=== PATIENT | female | born 1940 | race Two or more races ===

== ENCOUNTER 2024-02-15 09:35 | Inpatient (IN) | payer OTHER ==
[2024-02-15] VITALS (8 sets, daily range): BP systolic 143–144; BP diastolic 56–64; PULSE 60–78; RESP 16–18; TEMP 98; O2SAT 96–100
[~2024-02-15] VITALS: Ht 157.5 cm; Wt 73.0 kg
[2024-02-15 10:26] LABS: Basophils # (auto) 0 10 ^3/uL (0-0.2); Basophils % (auto) 0.8 % (0.0-2.0); Eosinophils # (auto) 0 10 ^3/uL (0-0.8); Eosinophils % (auto) 0.7 % (0.0-7.0); Hematocrit 44.2 % (36.0-46.0); Hemoglobin 14.9 g/dL (12.2-16.2); Lymphocytes # (auto) 1.5 10 ^3/uL (0.4-5.4); Lymphocytes % (auto) 25.1 % (10.0-50.0); Mean Corpuscular Hgb Conc. 33.7 g/dL (32.0-36.0); Monocytes # (auto) 0.5 10 ^3/uL (0-1.3); Monocytes % (auto) 9.3 % (0.0-12.0); Neutrophils # (auto) 3.8 10 ^3/uL (1.6-8.6); Neutrophils % (auto) 64.1 % (37.0-80.0); Nucleated Red Blood Cells % 0.1 %; Red Blood Cells 4.97 10^6/uL (4.0-5.20); Red Cell Distribution Width 14.8 % (11.8-14.3); White Blood Cell 5.9 10^3/uL (4.4-10.8)
[2024-02-15 10:41] LABS: Carbon Dioxide 28 mmol/L (20-30)
[2024-02-15 10:42] LABS: Calcium 10.2 mg/dL (8.7-10.4)
[2024-02-15 10:47] LABS: BUN/Creatinine Ratio 14.3 (10.0-20.0); Blood Urea Nitrogen 16 mg/dL (9-23); Glucose 102 mg/dL (74-106)
[2024-02-15 10:59] LABS: Anion Gap 7 (5-15); Chloride 102 mmol/L (98-107); Potassium 4.1 mmol/L (3.5-5.1); Sodium 137 mmol/L (136-145)
[2024-02-15] MEDS ORDERED: NITROGLYCERIN 0.4 MG SL TAB SL PRN ×2 (13:00→16:00)
[2024-02-15] MEDS ORDERED: SODIUM CHLORIDE 0.9% 1,000 ML IV SCH (13:00)
[2024-02-15] MEDS ORDERED: ALBUTEROL SULF 2.5 MG/0.5ML(0.5%) NEB SOLN NEB PRN ×2 (13:00→16:15)
[2024-02-15] MEDS ORDERED: ACETAMINOPHEN 325 MG TAB PO PRN (13:00)
[2024-02-15] MEDS ORDERED: MORPHINE SULFATE INJ 2 MG/ml SYRG IV PRN ×2 (13:00→16:00)
[2024-02-15] MEDS ORDERED: TRAZ-227 PO (13:03)
[2024-02-15] MEDS ORDERED: ALPR0.5T7 PO (13:03)
[2024-02-15] MEDS ORDERED: ESCI1TAB36 PO (13:03)
[2024-02-15] MEDS ORDERED: DAPA10TA3 PO (13:03)
[2024-02-15] MEDS ORDERED: LETR2.5T6 PO (13:03)
[2024-02-15] MEDS ORDERED: DAPA1TAB4 PO (13:03)
[2024-02-15] MEDS ORDERED: PANT40T PO (13:03)
[2024-02-15] MEDS ORDERED: LOSA-535 PO (13:03)
[2024-02-15] MEDS ORDERED: METH-1181 PO (13:03)
[2024-02-15] MEDS ORDERED: LEVO75TA6 PO (13:03)
[2024-02-15] MEDS ORDERED: IBUP1TAB5 PO (13:03)
[2024-02-15] MEDS ORDERED: ALBU108A5 INH (13:03)
[2024-02-15] MEDS ORDERED: ALBUAER3 PO (13:03)
[2024-02-15] MEDS ORDERED: ATOR10TA52 PO (13:03)
[2024-02-15] MEDS ORDERED: AZIT-43 PO (13:03)
[2024-02-15] MEDS ORDERED: LORA-483 PO (13:03)
[2024-02-15] MEDS ORDERED: hydrALAZINE HCL 20 MG/ML VL IV PRN (13:15)
[2024-02-15] MEDS ORDERED: traZODone HCL 50 MG TAB PO PRN (13:15)
[2024-02-15 13:52] LABS: Triglycerides 123 mg/dL (< 150)
[2024-02-15 13:53] LABS: LDL Cholesterol 50 mg/dL (< 100)
[2024-02-15 13:54] LABS: Cholesterol 137 mg/dL (< 200); HDL Cholesterol 66 mg/dL (40-59)
[2024-02-15] MEDS ORDERED: IPRATROPIUM BROM 0.5 MG/2.5ML INH SOL NEB SCH (14:00)
[2024-02-15] MEDS ORDERED: ALBUTEROL SULF 2.5 MG/0.5ML(0.5%) NEB SOLN NEB SCH (14:00)
[2024-02-15 14:30] LABS: INR 1.05 (0.9-1.15); Partial Thromboplastin Time 25.2 SEC (24.5-34.5); Prothrombin Time 11.1 sec (9.3-11.8)
[2024-02-15] MEDS ORDERED: DEXTROSE (50%) 50ML SYRG IV PRN (16:00)
[2024-02-15] MEDS: ACCU-CHEK COMFORT CURVE STRIP VI SCH (18:13)
[2024-02-15] MEDS: InsuLIN REG 1unit/0.01ml Soln (100units/ml) SC SCH (18:14)
[2024-02-15] MEDS: SODIUM CHLORIDE 0.9% 1,000 ML IV SCH (18:26)
[2024-02-15] MEDS: IPRATROPIUM BROM 0.5 MG/2.5ML INH SOL NEB SCH (18:36)
[2024-02-15] MEDS: ALBUTEROL SULF 2.5 MG/0.5ML(0.5%) NEB SOLN NEB SCH (18:36)
[2024-02-15 21:31] LABS: Body Fluid Polymorphonuclear 2 % (0-25); Body Fluid Red Blood Cells 65 CUMM (0-2000); Body Fluid White Blood Cells 293 CUMM (0-200)
[2024-02-15] MEDS: ATORVASTATIN 20 MG TAB PO SCH (22:30)
[2024-02-16] VITALS (18 sets, daily range): BP systolic 104–143; BP diastolic 41–56; PULSE 63–92; RESP 16–20; TEMP 97.6–98.3; O2SAT 91–100
[2024-02-16] MEDS: HYDROcodone-ACET 5/325MG TAB PO PRN (00:03)
[2024-02-16] MEDS: LEVOTHYROXINE SODIUM 25 MCG TAB PO SCH (06:02)
[2024-02-16] MEDS ORDERED: TRIA75TA55 PO (06:02)
[2024-02-16 07:08] LABS: Albumin 3.9 g/dL (3.2-4.8); Alkaline Phosphatase 51 U/L (46-116); Anion Gap 7 (5-15); Aspartate Aminotransferase 25 U/L (13-40); BUN/Creatinine Ratio 10.1 (10.0-20.0); Bilirubin, Total 0.6 mg/dL (0.2-1.0); Blood Urea Nitrogen 11 mg/dL (9-23); Calcium 9.4 mg/dL (8.7-10.4); Carbon Dioxide 27 mmol/L (20-30); Chloride 102 mmol/L (98-107); Glucose 114 mg/dL (74-106); Potassium 3.6 mmol/L (3.5-5.1); Sodium 136 mmol/L (136-145); Total Protein 6.1 g/dL (5.7-8.2)
[2024-02-16 07:10] LABS: Alanine Aminotransferase < 9 U/L (7-40)
[2024-02-16 09:23] LABS: Basophils # (auto) 0 10 ^3/uL (0-0.2); Basophils % (auto) 0.8 % (0.0-2.0); Eosinophils # (auto) 0 10 ^3/uL (0-0.8); Eosinophils % (auto) 0.8 % (0.0-7.0); Hematocrit 40.3 % (36.0-46.0); Hemoglobin 13.6 g/dL (12.2-16.2); Lymphocytes # (auto) 1.1 10 ^3/uL (0.4-5.4); Lymphocytes % (auto) 24.7 % (10.0-50.0); Mean Corpuscular Hemoglobin 29.7 pg (28.0-32.0); Mean Corpuscular Hgb Conc. 33.6 g/dL (32.0-36.0); Mean Corpuscular Volume 88.4 fL (80.0-100.0); Monocytes # (auto) 0.4 10 ^3/uL (0-1.3); Monocytes % (auto) 9.2 % (0.0-12.0); Neutrophils # (auto) 2.8 10 ^3/uL (1.6-8.6); Neutrophils % (auto) 64.5 % (37.0-80.0); Nucleated Red Blood Cells % 0.1 %; Red Blood Cells 4.56 10^6/uL (4.0-5.20); Red Cell Distribution Width 15.1 % (11.8-14.3); White Blood Cell 4.4 10^3/uL (4.4-10.8)
[2024-02-16] MEDS: CITALOPRAM HYDROBR 20 MG TAB PO SCH (09:39)
[2024-02-16] MEDS: LOSARTAN POTASSIUM 50 MG TAB PO SCH (09:40)
[2024-02-16] MEDS: ENOXAPARIN SOD 40 MG/0.4 ML SYRINGE SC SCH (09:41)
[2024-02-16] MEDS: Letrozole 2.5 MG TAB PO SCH (10:00)
[2024-02-16] MEDS ORDERED: METHOCARBAMOL 500 MG TAB PO SCH (10:00)
[2024-02-16] MEDS ORDERED: PANTOPRAZOLE 40 MG TAB PO SCH (10:00)
[2024-02-17] VITALS (17 sets, daily range): BP systolic 106–132; BP diastolic 38–77; PULSE 65–93; RESP 16–20; TEMP 97.9–99.4; O2SAT 85–100
[2024-02-17 07:30] LABS: Albumin 3.5 g/dL (3.2-4.8); Alkaline Phosphatase 53 U/L (46-116); Anion Gap 9 (5-15); Aspartate Aminotransferase 15 U/L (13-40); BUN/Creatinine Ratio 13.6 (10.0-20.0); Bilirubin, Total 0.5 mg/dL (0.2-1.0); Blood Urea Nitrogen 15 mg/dL (9-23); Carbon Dioxide 25 mmol/L (20-30); Chloride 105 mmol/L (98-107); Glucose 122 mg/dL (74-106); Potassium 3.4 mmol/L (3.5-5.1); Sodium 139 mmol/L (136-145); Total Protein 5.2 g/dL (5.7-8.2)
[2024-02-17 07:34] LABS: Alanine Aminotransferase < 9 U/L (7-40)
[2024-02-17] MEDS ORDERED: DAPAGLIFLOZIN PROPANEDIOL 10 MG PO SCH (10:00)
[2024-02-17] MEDS: EMPAGLIFLOZIN 10 MG TAB PO SCH (11:00)
[2024-02-17] MEDS: POTASSIUM EFFERVESENT TAB 25 MEQ PO ONE (11:21)
[2024-02-17 14:06] LABS: Protein, Body Fluid 4.3 g/dL (.)
[2024-02-18] VITALS (22 sets, daily range): BP systolic 117–148; BP diastolic 51–77; PULSE 53–89; RESP 16–20; TEMP 97.9–98.8; O2SAT 89–100
[2024-02-18 07:08] LABS: Anion Gap 7 (5-15); Calcium 9.4 mg/dL (8.7-10.4); Carbon Dioxide 29 mmol/L (20-30); Chloride 103 mmol/L (98-107); Potassium 3.4 mmol/L (3.5-5.1); Sodium 139 mmol/L (136-145)
[2024-02-18 07:13] LABS: Glucose 118 mg/dL (74-106)
[2024-02-18 07:14] LABS: BUN/Creatinine Ratio 11.3 (10.0-20.0); Blood Urea Nitrogen 11 mg/dL (9-23)
[2024-02-18] MEDS: POTASSIUM EFFERVESENT TAB 25 MEQ PO ONE (09:42)
[2024-02-18] MEDS: MIDAZOLAM HCL 2MG/2ML 2ml VIAL (1mg/ml) IV ONE (12:41)
[2024-02-18] MEDS: fentaNYL CITRATE 100 MCG/2 ML VL IV ONE (12:41)
[2024-02-18] MEDS ORDERED: MORPHINE SULFATE INJ 2 MG/ml SYRG IV PRN (16:15)
[2024-02-18] MEDS: ACETAMINOPHEN 325 MG TAB PO PRN (18:56)
[2024-02-18] MEDS: traZODone HCL 50 MG TAB PO SCH (21:06)
[2024-02-19] VITALS (19 sets, daily range): BP systolic 106–144; BP diastolic 52–92; PULSE 70–94; RESP 16–20; TEMP 98.1–99.7; O2SAT 92–100
[2024-02-19 06:13] LABS: Basophils # (auto) 0 10 ^3/uL (0-0.2); Basophils % (auto) 0.6 % (0.0-2.0); Eosinophils # (auto) 0 10 ^3/uL (0-0.8); Eosinophils % (auto) 0.9 % (0.0-7.0); Hematocrit 38.7 % (36.0-46.0); Lymphocytes # (auto) 1.2 10 ^3/uL (0.4-5.4); Lymphocytes % (auto) 25.1 % (10.0-50.0); Mean Corpuscular Hemoglobin 29.8 pg (28.0-32.0); Mean Corpuscular Hgb Conc. 33.7 g/dL (32.0-36.0); Mean Corpuscular Volume 88.5 fL (80.0-100.0); Monocytes # (auto) 0.6 10 ^3/uL (0-1.3); Monocytes % (auto) 12.6 % (0.0-12.0); Neutrophils # (auto) 2.8 10 ^3/uL (1.6-8.6); Neutrophils % (auto) 60.8 % (37.0-80.0); Nucleated Red Blood Cells % 0.1 %; Red Blood Cells 4.37 10^6/uL (4.0-5.20); Red Cell Distribution Width 15.3 % (11.8-14.3); White Blood Cell 4.7 10^3/uL (4.4-10.8)
[2024-02-19 06:29] LABS: Albumin 3.6 g/dL (3.2-4.8); Alkaline Phosphatase 49 U/L (46-116); Anion Gap 6 (5-15); Aspartate Aminotransferase 18 U/L (13-40); BUN/Creatinine Ratio 10.8 (10.0-20.0); Bilirubin, Total 0.8 mg/dL (0.2-1.0); Blood Urea Nitrogen 11 mg/dL (9-23); Calcium 9.5 mg/dL (8.7-10.4); Carbon Dioxide 29 mmol/L (20-30); Chloride 104 mmol/L (98-107); Glucose 119 mg/dL (74-106); Potassium 4.1 mmol/L (3.5-5.1); Sodium 139 mmol/L (136-145); Total Protein 5.7 g/dL (5.7-8.2)
[2024-02-19 06:30] LABS: Alanine Aminotransferase < 9 U/L (7-40)
[2024-02-20] VITALS (9 sets, daily range): BP systolic 116–155; BP diastolic 49–68; PULSE 70–88; RESP 17–19; TEMP 98.7–99.7; O2SAT 91–97
[2024-02-20] MEDS: THROAT LOZENGES(CEPASTAT) MT PRN (21:15)
[2024-02-21] VITALS (10 sets, daily range): BP systolic 112–145; BP diastolic 57–79; PULSE 70–88; RESP 16–20; TEMP 97.8–100; O2SAT 91–97
[2024-02-21 05:52] LABS: Basophils # (auto) 0 10 ^3/uL (0-0.2); Eosinophils # (auto) 0.1 10 ^3/uL (0-0.8); Eosinophils % (auto) 1.7 % (0.0-7.0); Hematocrit 41.7 % (36.0-46.0); Hemoglobin 13.9 g/dL (12.2-16.2); Lymphocytes # (auto) 0.9 10 ^3/uL (0.4-5.4); Mean Corpuscular Hemoglobin 29.7 pg (28.0-32.0); Mean Corpuscular Hgb Conc. 33.3 g/dL (32.0-36.0); Mean Corpuscular Volume 89.1 fL (80.0-100.0); Monocytes # (auto) 0.5 10 ^3/uL (0-1.3); Monocytes % (auto) 10.5 % (0.0-12.0); Neutrophils # (auto) 2.9 10 ^3/uL (1.6-8.6); Neutrophils % (auto) 65.8 % (37.0-80.0); Red Blood Cells 4.68 10^6/uL (4.0-5.20); Red Cell Distribution Width 14.5 % (11.8-14.3); White Blood Cell 4.4 10^3/uL (4.4-10.8)
[2024-02-21 06:06] LABS: Chloride 102 mmol/L (98-107); Potassium 3.8 mmol/L (3.5-5.1); Sodium 135 mmol/L (136-145)
[2024-02-21 06:07] LABS: Anion Gap 7 (5-15); Carbon Dioxide 26 mmol/L (20-30)
[2024-02-21 06:12] LABS: BUN/Creatinine Ratio 10.6 (10.0-20.0); Blood Urea Nitrogen 9 mg/dL (9-23); Glucose 119 mg/dL (74-106)
[2024-02-22 05:00] VITALS: BP 128/58; PULSE 79; RESP 20; TEMP 98.6; O2SAT 92
[2024-02-22 06:51] VITALS: O2SAT 95
[2024-02-22 08:59] VITALS: BP 127/60; PULSE 71; RESP 16; TEMP 98.3; O2SAT 94
[2024-02-22 13:25] VITALS: BP 129/81; PULSE 69; RESP 17; TEMP 98.1; O2SAT 94
[2024-02-22 16:54] VITALS: BP 114/52; PULSE 75; RESP 17; TEMP 98.7; O2SAT 100
[2024-02-22 17:16] VITALS: BP 114/52; PULSE 75; RESP 17; TEMP 98.7; O2SAT 100
== END 2024-02-22 16:00 | disposition home or self-care (01) | DRG 189 ==
LOC: ER 09:35 → TELE 13:01 → TELE-CENTR 23:01 → TELE-WESTW 02-18 06:26 → WEST WING 02-18 07:11
PROVIDERS: ADMIT Nurse Practitioner Family; ATTEND Nurse Practitioner Acute Care
PROC: 0W993ZZ Drainage of Right Pleural Cavity, Percutaneous Approach (ICD-10-PCS; principal; 2024-02-15)
PROC: 0W993ZZ Drainage of Right Pleural Cavity, Percutaneous Approach (ICD-10-PCS; 2024-02-17)
PROC: 0W9930Z Drainage of Right Pleural Cavity with Drainage Device, Percutaneous Approach (ICD-10-PCS; 2024-02-18)
DX: J96.01 Acute respiratory failure with hypoxia (principal); J93.9 Pneumothorax, unspecified; J98.11 Atelectasis; J91.8 Pleural effusion in other conditions classified elsewhere; E11.9 Type 2 diabetes mellitus without complications; I10 Essential (primary) hypertension; E66.01 Morbid (severe) obesity due to excess calories; J47.9 Bronchiectasis, uncomplicated; Z85.3 Personal history of malignant neoplasm of breast; Z87.891 Personal history of nicotine dependence; Z90.11 Acquired absence of right breast and nipple; Z86.711 Personal history of pulmonary embolism; Z68.29 Body mass index [BMI] 29.0-29.9, adult; Z79.899 Other long term (current) drug therapy; G89.29 Other chronic pain
CPT/HCPCS: 10005; 36415; 71045; 71250; 76604; 76942; 77012; 80048; 80053; 80061; 82962; 83036; 83615; 83735; 83880; 83986; 84443; 84484; 85025; 85379; 85610; 85730; 87205; 89051; 93005; 93306; 94640; 96360; 99291; A4223; C1729; G0378; J1815; J2250

== ENCOUNTER 2024-09-15 10:35 | Emergency (ER) | payer OTHER, MEDICAID ==
[~2024-09-15] VITALS: Ht 160 cm; Wt 73.7 kg
[~2024-09-15 10:35] MED LIST: ALBU108A5 INH; ALBUAER3 PO; ALPR0.5T7 PO; ATOR10TA52 PO; AZIT-43 PO; DAPA10TA3 PO; DAPA1TAB4 PO; ESCI1TAB36 PO; IBUP1TAB5 PO; LETR2.5T6 PO; LEVO75TA6 PO; LORA-483 PO; LOSA-535 PO; METH-1181 PO; PANT40T PO; TRAZ-227 PO; TRIA75TA55 PO
[2024-09-15] MEDS: MORPHINE SULFATE 4 MG/ML SYR/VIAL IV ONE (11:00)
[2024-09-15] MEDS: ONDANSETRON HCL 4 MG/2 ML VIAL IV ONE (11:00)
--- NOTE | 2024-09-15 11:00 | ED.PDOC ---
GI ASSESSMENT HPI Comments 84-year-old female who comes in with chief complaint of left upper quadrant pain since about 2:00 a.m. in the morning. The patient states that pain increases with deep respiration. The patient was currently on chemo as well as radiation therapy at [facility] for a recurring breast cancer with metastasis. The patient states that the pain is a 10/10. She denies any nausea, vomiting, fever or chills. The patient also denies any dysuria. The pain increases on movement and palpation. Chief Complaint: Abdominal Pain Time Seen by MD: 10:42 Primary Care Provider: JERRI Reviewed Notes: Nurses Notes, Medications, Allergies (Allergies to codeine) Allergies: Coded Allergies: Codeine (Verified Allergy, Mild, 02/15/24) Home Meds Reported Medications Triamterene & Hydrochlorothiaz (Maxzide) 1 Tab Tab, 1 TAB PO DAILY, #30 TAB 5 Refills 02/16/24 Dapagliflozin Propanediol (Dapagliflozin Propanediol) 10 Mg Tab, 1 TAB PO DAILY 02/15/24 Trazodone Hcl (Trazodone Hcl) 50 Mg Tab, 1 TAB PO 02/15/24 Levothyroxine Sodium (Levothyroxine Sodium) 75 Mcg Tab, 1 TAB PO QAM 02/15/24 Methocarbamol (Methocarbamol) 500 Mg Tab, TAB PO 02/15/24 Ibuprofen Micronized (Ibuprofen) 600 Mg Tab, 1 TAB PO Q6HPRN PRN 02/15/24 Azithromycin (Azithromycin) 250 Mg Tab, 1 TAB PO UD 02/15/24 Atorvastatin Calcium (ATORVASTATIN CALCIUM) 10 Mg Tab, 1 TAB PO DAILY 02/15/24 Albuterol Sulfate (VENTOLIN MDI) 90 Mcg Ih, 2 PUFF PO Q6HPRN PRN 02/15/24 Losartan Potassium (Losartan Potassium) 100 Mg Tab, 1 TAB PO DAILY 02/15/24 Loratadine (CLARITIN TABLET) 10 Mg Tb, 1 TAB PO DAILYPRN PRN 02/15/24 Alprazolam (Alprazolam) 0.5 Mg Tab, TAB PO 02/15/24 Dapagliflozin Propanediol (Farxiga) 10 Mg Tab, 1 TAB PO DAILY 02/15/24 Escitalopram Oxalate (ESCITALOPRAM OXALATE) 10 Mg Tab, 1 TAB PO DAILY 02/15/24 Pantoprazole Sodium Sesquihydr (Pantoprazole Sodium) 40 Mg Tab, 1 TAB PO DAILY 02/15/24 Letrozole (LETROZOLE) 2.5 Mg Tab, 1 TAB PO DAILY 02/15/24 Albuterol Sulfate (Albuterol Sulfate Hfa) 108 Mcg/Act Aer, INH 02/15/24 Information Source: Patient Mode of Arrival: Ambulatory Timing: Hours (Symptoms started at approximately 2:00 a.m.) Duration: Since onset Prehospital treatment: None Quality: Cramping, Sharp Vomitus: None Stool: Other (History of breast cancer with metastasis) Severity: Moderate Recent: None Recent Hx of: None Pain Location: LUQ Modifying Factors: Exertion, Movement Associated sign and symptoms: Abdominal Pain Past Medical History PAST MEDICAL HISTORY: Cancer (Previous history of breast cancer with metastasis), CKF, DM, High Lipids, HTN, Thyroid Surgical History: Appendectomy, Cholecystectomy, Hysterectomy Surgical History (Other): Cataract surgery, right mastectomy COMMUNICATION INSTRUCTOR History: No Pertinent COMMUNICATION INSTRUCTOR History Family History Family History: Unknown Social History Smoker: Non-Smoker Alcohol: Denies ETOH Use Drugs: Denies Drug Use Lives In: Home Constitutional: denies: chills, diaphoresis, fatigue, fever, malaise, sweats, weakness, others EENTM: denies: blurred vision, double vision, ear bleeding, ear discharge, ear drainage, ear pain, ear ringing, eye pain, eye redness, hearing loss, mouth pain, mouth swelling, nasal discharge, nose bleeding, nose congestion, nose pain, photophobia, tearing, throat pain, throat swelling, voice changes, others Respiratory: denies: cough, hemoptysis, orthopnea, SOB at rest, shortness of breath, SOB with excertion, stridor, wheezing, others Cardiovascular: denies: chest pain, dizzy spells, diaphoresis, Dyspnea on exertion, edema, irregular heart beat, left arm pain, lightheadedness, palpitations, PND, syncope, others Gastrointestinal: reports: abdominal pain; denies: abdomen distended, blood streaked bowels, constipated, diarrhea, dysphagia, difficulty swallowing, hematemesis, melena, nausea, poor appetite, poor fluid intake, rectal bleeding, rectal pain, vomiting, others Genitourinary: denies: abnormal vagina bleeding, burning, dyspareunia, dysuria, flank pain, frequency, hematuria, incontinence, pain, , vagina discharge, urgency, others Neurological: denies: dizziness, fainting, headache, left sided numbness, left sided weakness, numbness, paresthesia, pre-existing deficit, right sided numbness, right sided weakness, seizure, speech problems, tingling, tremors, weakness, others Musculoskeletal: denies: back pain, gout, joint pain, joint swelling, muscle pain, muscle stiffness, neck pain, others Integumetry: denies: bruises, change in color, change in hair/nails, dryness, laceration, lesions, lumps, rash, wounds, others Allergic/Immunocompromised: denies: Difficulty Healing, Frequent Infections, Hives, Itching, others Hematologic/Lymphatic: denies: anemia, blood clots, easy bleeding, easy bruising, swollen glands, others Endocrine: denies: excessive hunger, excessive sweating, excessive thirst, excessive urination, flushing, intolerance to cold, intolerance to heat, unexplained weight gain, unexplained weight loss, others Psychiatric: denies: anxiety, bipolar disorder, depression, hopeless, panic disorder, schizophrenia, sleepless, suicidal, others Physical Exam General Appearance: Moderate Distress HEENT: Pale Conjuntivae (L), Pale Conjuntivae (R), Pharynx Normal, TMs Normal Neck: Full Range of Motion, Non-Tender, Normal, Normal Inspection Respiratory: Chest Non-Tender, Lungs Clear, No Accessory Muscle Use, No Respira tory Distress, Normal Breath Sounds Cardiovascular: No Edema, No JVD, No Murmur, No Gallop, Normal Peripheral Pulses, Regular Rate/Rhythm Breast Exam: Deferred Gastrointestinal: No Organomegaly, No Pulsatile Mass, Normal Bowel Sounds, Soft, Tenderness Genitalia: Deferred Pelvic: Deferred Rectal: Deferred Extremities: No calf tenderness, Normal capillary refill, Normal inspection, Normal range of motion, Non-tender, No pedal edema Musculoskeletal : Apperance: Normal Neurologic: Alert, draw frame tender II-XII nml as Tested, No Motor Deficits, Normal Affect, Normal Mood, No Sensory Deficits Cerebellar Function: Normal Reflexes: Normal Skin: Dry, Normal Color, Warm Lymphatic: No Adenopathy Was a procedure done? Was a procedure done?: No GI differential Dx Differential Diagnosis: Gastritis/PUD, Gastroenteritis, GI hemorrhage, Ischemic Bowel, Pancreatitis, UTI, Electrolyte Imbalance X-Ray, Labs, Meds, VS Vital Signs Date Time Temp Pulse Resp B/P (MAP) Pulse Ox O2 Delivery O2 Flow Rate FiO2 09/15/24 13:21 74 18 94 Room Air 09/15/24 13:21 74 18 134/62 (86) 94 09/15/24 12:16 80 17 151/59 09/15/24 11:00 92 17 151/58 09/15/24 10:52 75 09/15/24 10:49 99.2 83 16 153/64 (93) 97 Lab Test 09/15/24 11:23 09/15/24 10:56 Range/Units White Blood Count 4.8 4.4-10.8 10^3/uL Red Blood Count 3.37 L 4.0-5.20 10^6/uL Hemoglobin 11.4 L 12.2-16.2 g/dL Hematocrit 33.5 L 36.0-46.0 % Mean Corpuscular Volume 99.3 80.0-100.0 fL Mean Corpuscular Hemoglobin 33.8 H 28.0-32.0 pg Mean Corpuscular Hemoglobin Concent 34.0 32.0-36.0 g/dL Red Cell Distribution Width 14.1 11.8-14.3 % Platelet Count 251 140-450 10^3/uL Mean Platelet Volume 7.6 6.9-10.8 fL Neutrophils (%) (Auto) 56.7 37.0-80.0 % Lymphocytes (%) (Auto) 30.3 10.0-50.0 % Monocytes (%) (Auto) 8.6 0.0-12.0 % Eosinophils (%) (Auto) 2.7 0.0-7.0 % Basophils (%) (Auto) 1.7 0.0-2.0 % Neutrophils # (Auto) 2.7 1.6-8.6 10 ^3/uL Lymphocytes # (Auto) 1.5 0.4-5.4 10 ^3/uL Monocytes # (Auto) 0.4 0-1.3 10 ^3/uL Eosinophils # (Auto) 0.1 0-0.8 10 ^3/uL Basophils # (Auto) 0.1 0-0.2 10 ^3/uL Nucleated Red Blood Cells 0.1 % Sodium Level 144 136-145 mmol/L Potassium Level 4.0 3.5-5.1 mmol/L Chloride Level 107 98-107 mmol/L Carbon Dioxide Level 30 20-31 mmol/L Anion Gap 7 5-15 Blood Urea Nitrogen 15 9-23 mg/dL Creatinine 1.23 H 0.550-1.02 mg/dL Glomerular Filtration Rate Calc 44 >90 mL/min BUN/Creatinine Ratio 12.2 10.0-20.0 Serum Glucose 132 H 74-106 mg/dL Calcium Level 10.4 8.7-10.4 mg/dL Total Bilirubin 0.5 0.2-1.0 mg/dL Aspartate Amino Transferase (AST) 19 13-40 U/L Alanine Aminotransferase (ALT) 10 7-40 U/L Alkaline Phosphatase 62 46-116 U/L Total Protein 7.1 5.7-8.2 g/dL Albumin 4.3 3.2-4.8 g/dL Lipase 36 12-53 U/L Urine Color Light-yellow Yellow Urine Clarity Clear Clear Urine pH 6.0 5.0-9.0 Urine Specific Register 1.008 1.001-1.035 Urine Protein Negative Negative Urine Ketones Negative Negative Urine Blood Negative Negative /uL Urine Nitrite Negative Negative Urine Bilirubin Negative Negative Urine Urobilinogen Normal Negative mg/dL Urine Leukocyte Esterase Negative Negative /uL Urine RBC <1 0 - 4 /hpf Urine Microscopic WBC < 1 0-5 /HPF Urine Squamous Epithelial Cells Few <5 /hpf Urine Bacteria None seen None Seen /hpf Urine Glucose 4+ H Normal mg/dL Current Medications Medications (Trade) Dose Ordered Sig/Dickson Route Start Time Stop Time Status Last Admin Ondansetron HCl (Zofran) 4 mg ONCE ONCE IV 09/15/24 11:00 09/15/24 11:01 DC 09/15/24 11:00 Morphine Sulfate 4 mg ONCE ONCE IV 09/15/24 11:00 09/15/24 11:01 DC 09/15/24 11:00 IV Hep-Lock is being established The patient was being given morphine for the pain and Zofran for the nausea The patient was states that she was feeling better. The CBC and chemistry panel are within normal limits The urine test is negative The patient was stating that she is feeling better and so we are going to discharge her at this time We spoke with her and the patient's daughter and they are in agreement with the management They do have Wiggins at home for the pain. The patient was discharged Images Reviewed?: Images reviewed and evaluated by me Time of 1ST Reevaluation: 11:00 Reevaluation 1ST: Unchanged Patient Education/Counseling: Diagnosis, Treatment, Prognosis, Need For Follow Up Family Education/Counseling: No Family Present Departure 1 Departure Time of Disposition: 16:34 Impression: Primary Impression: Abdominal pain Qualified Codes: R10.12 - Left upper quadrant pain Additional Impression: Musculoskeletal pain Disposition: 01 HOME / SELF CARE / HOMELESS Condition: Fair Discharged With: Self Critical Care Note Critical Care Time?: No Stability Stability form required: No Heart Score Heart Score: Heart Score Response (Comments) Value History N/A 0 EKG N/A 0 Age N/A 0 Risk Factors N/A 0 Troponin N/A 0 Total 0 RAUL BARRON MD Sep 15, 2024 11:00
--- NOTE | 2024-09-15 11:36 | DVH ---
Exam: CT CT AB PEL WO CON-NO ORAL OR IV History: luq pain Comparison Study: None available at time of dictation. Technique: Multidetector spiral CT of the abdomen and pelvis was performed from lung bases to pubic s ymphysis. Imaging was performed without intravenous contrast. Coronal and sagittal multiplanar refor mats were obtained from the axial data set by the technologist. Radiation Dose : 1. Abdomen/Pelvis: CTDIvol 8.9 mGy, DLP 455 mGy*cm. Findings: Evaluation of vasculature and solid organs is limited due to lack of intravenous contrast use. Lung Bases: Small right pleural effusion and right basilar atelectasis. The visualized portions of t he heart and pericardium are unremarkable. Liver: The liver is normal in size. No focal lesions. Gallbladder and Biliary Tree: The gallbladder is surgically absent. No intrahepatic or extrahepatic biliary ductal dilatation. Spleen: Unremarkable Pancreas: The pancreas is grossly unremarkable. Adrenal Glands: Unremarkable Kidneys: Kidneys are unremarkable without calculi or hydronephrosis. GI tract: The stomach is grossly normal in appearance. No evidence of small bowel wall thickening or abnormal dilatation to suggest bowel obstruction. Sigmoid diverticulosis without acute diverticuliti s. The appendix is not visualized, however no inflammatory changes in the right lower quadrant to reyes ggest acute appendicitis. Peritoneum/mesentery/retroperitoneum. No evidence of free intraperitoneal air. No ascites. No evidenc e of suspicious lymphadenopathy. Abdominal Wall: Unremarkable. Vasculature: The visualized abdominal aorta is normal in size and caliber. Evaluation of abdominal a nd pelvic vessels is limited due to lack of intravenous contrast. Urinary Bladder: Grossly unremarkable for degree of distention. Pelvic Organs: Unremarkable Musculoskeletal: Age-indeterminate L4 compression deformity. Degenerative changes in the lumbar spine . Degenerative changes in the hips. Chest wall: Right mastectomy. IMPRESSION: 1. No acute abdominal or pelvic findings. 2. Sigmoid diverticulosis without acute diverticulitis. 3. Cholecystectomy. 4. Right pleural effusion and lower lobe passive atelectasis.
[2024-09-15 11:52] LABS: Basophils # (auto) 0.1 10 ^3/uL (0-0.2); Basophils % (auto) 1.7 % (0.0-2.0); Eosinophils # (auto) 0.1 10 ^3/uL (0-0.8); Eosinophils % (auto) 2.7 % (0.0-7.0); Hematocrit 33.5 % (36.0-46.0); Hemoglobin 11.4 g/dL (12.2-16.2); Lymphocytes # (auto) 1.5 10 ^3/uL (0.4-5.4); Lymphocytes % (auto) 30.3 % (10.0-50.0); Mean Corpuscular Hemoglobin 33.8 pg (28.0-32.0); Mean Corpuscular Volume 99.3 fL (80.0-100.0); Monocytes # (auto) 0.4 10 ^3/uL (0-1.3); Monocytes % (auto) 8.6 % (0.0-12.0); Neutrophils # (auto) 2.7 10 ^3/uL (1.6-8.6); Neutrophils % (auto) 56.7 % (37.0-80.0); Nucleated Red Blood Cells % 0.1 %; Platelet Count (auto) 251 10^3/uL (140-450); Red Blood Cells 3.37 10^6/uL (4.0-5.20); Red Cell Distribution Width 14.1 % (11.8-14.3); White Blood Cell 4.8 10^3/uL (4.4-10.8)
[2024-09-15 11:55] LABS: Urine Bacteria None Seen /hpf (None Seen)
[2024-09-15 12:06] LABS: Urine Blood Negative /uL (Negative); Urine Clarity Clear (Clear); Urine Color Light-Yellow (Yellow); Urine Protein, UAD Negative (Negative); Urine Specific Gravity 1.008 (1.001-1.035); Urine Squamous Epithelial Cell FEW /hpf (<5); Urine Urobilinogen Normal (Negative); Urine WBC < 1 /HPF (0-5)
[2024-09-15 12:29] LABS: Alanine Aminotransferase 10 U/L (7-40); Albumin 4.3 g/dL (3.2-4.8); Alkaline Phosphatase 62 U/L (46-116); Anion Gap 7 (5-15); Aspartate Aminotransferase 19 U/L (13-40); BUN/Creatinine Ratio 12.2 (10.0-20.0); Bilirubin, Total 0.5 mg/dL (0.2-1.0); Blood Urea Nitrogen 15 mg/dL (9-23); Carbon Dioxide 30 mmol/L (20-31); Lipase 36 U/L (12-53); Sodium 144 mmol/L (136-145); Total Protein 7.1 g/dL (5.7-8.2)
[2024-09-15 12:35] LABS: Calcium 10.4 mg/dL (8.7-10.4); Chloride 107 mmol/L (98-107); Glucose 132 mg/dL (74-106)
[2024-09-15 13:21] VITALS: BP 134/62; PULSE 74; RESP 18; O2SAT 94
--- NOTE | 2024-09-16 09:18 | ECG ---
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
== END 2024-09-15 16:47 | disposition home or self-care (01) ==
LOC: EEVIPCON 10:35 → ER 10:35
DX: R10.12 Left upper quadrant pain (principal); M79.18 Myalgia, other site; E11.9 Type 2 diabetes mellitus without complications; I10 Essential (primary) hypertension; Z79.811 Long term (current) use of aromatase inhibitors; Z79.84 Long term (current) use of oral hypoglycemic drugs; Z79.899 Other long term (current) drug therapy; Z85.3 Personal history of malignant neoplasm of breast; Z88.5 Allergy status to narcotic agent; Z90.49 Acquired absence of other specified parts of digestive tract; Z90.710 Acquired absence of both cervix and uterus
CPT/HCPCS: 36415; 74176; 80053; 81001; 83690; 85025; 93005; 96374; 96375; 99285; J2270; J2405